=== PATIENT | female | born 1985 | race Two or more races ===

== ENCOUNTER 2016-09-24 23:37 | Emergency (ER) | payer SELFPAY ==
[~2016-09-24] VITALS: Ht 165.1 cm; Wt 76.2 kg
--- NOTE | 2016-09-24 23:45 | NUR ---
TO BED 4 A 31 YO FEMALE BIB SELF C/O REDNESS ON LOWER EXTREMITIES VIA BUG BITES. AAOX4, AMBULATORY. VSS. AFEBRILE. GOWNED. COMFORT MEASURES RENDERED. AWAITING FOR ER MD MCLAIN.
[2016-09-25] MEDS ORDERED: IBUPROFEN 400 MG TABLET ONE (00:27)
[2016-09-25] MEDS ORDERED: CLINDAMYCIN HCL 150 MG CAPSULE PO ONE ×2 (00:28→00:30)
[2016-09-25] MEDS ORDERED: diphenhydrAMINE HCL 25 MG CAPSULE ONE (00:28)
[2016-09-25] MEDS ORDERED: FAMOTIDINE (20 MG) 20 MG TABLET ONE (00:28)
[2016-09-25] MEDS ORDERED: diphenhydrAMINE HCL 25 MG CAPSULE PO ONE (00:30)
[2016-09-25] MEDS ORDERED: FAMOTIDINE (20 MG) 20 MG TABLET PO ONE (00:30)
[2016-09-25] MEDS ORDERED: IBUPROFEN 400 MG TABLET PO ONE (00:30)
--- NOTE | 2016-09-25 00:36 | NUR ---
MEDICATED PATIENT ORDERED BY DR ISABEL.
--- NOTE | 2016-09-25 00:45 | NUR ---
Patient discharged to home in stable condition. Written and verbal after care instructions given. Patient verbalizes understanding of instruction AND RX. PT AMBULATED OUT WITH A STEADY GAIT. VSS.
[2016-09-25 00:48] VITALS: BP 118/77
== END 2016-09-25 00:49 | disposition home or self-care (01) ==
LOC: ER 23:37
DX: S80.862A Insect bite (nonvenomous), left lower leg, initial encounter (principal); S80.861A Insect bite (nonvenomous), right lower leg, initial encounter; L03.116 Cellulitis of left lower limb; L03.115 Cellulitis of right lower limb; W57.XXXA Bitten or stung by nonvenomous insect and other nonvenomous arthropods, initial encounter; Y92.89 Other specified places as the place of occurrence of the external cause; Y93.89 Activity, other specified; Y99.8 Other external cause status
CPT/HCPCS: 99284; A4606; Q0163; Z7610